=== PATIENT | male | born 1980 | race Caucasian/White ===

== ENCOUNTER 2018-04-12 17:24 | Inpatient (IN) | payer OTHER ==
[2018-04-12] MEDS ORDERED: SODIUM CHLORIDE 0.9% 1,000 ML IV ONE (17:39)
[2018-04-12] MEDS ORDERED: KETOROLAC 30 MG/ML 1 ML VIAL IVP STA (17:39)
[2018-04-12] MEDS ORDERED: ONDANSETRON 4 MG/2 ML VIAL IVP STA (17:40)
--- NOTE | 2018-04-12 17:44 | ED ---
Abdominal Pain HPI - General Chief Complaint: Abdominal Pain Stated Complaint: abdominal pain Time Seen by Provider: 04/12/18 17:31 Source: patient Mode of arrival: ambulatory Limitations: no limitations - History of Present Illness Initial Comments: Patient is a 37-year-old male presents with chief complaint of right lower quadrant abdominal pain. This is been gradually worsening for the last 3 days. The patient states that today he had some diarrhea, and a decreased appetite. He admits to subjective fever. Cannot identify an inciting incident. No aggravating or alleviating factors. Timing is constant. - Related Data Home Medications Medication Instructions Recorded Confirmed Ibuprofen [Advil] 400 mg PO Q8HR 04/12/18 04/12/18 Allergies Allergy/AdvReac Type Severity Reaction Status Date / Time acetaminophen [From Vicodin] Allergy Unknown Verified 04/12/18 17:42 hydrocodone [From Vicodin] Allergy Unknown Verified 04/12/18 17:42 propoxyphene Allergy Unknown Verified 04/12/18 17:42 [From Darvocet-N] Review of Systems ROS Statement: Those systems with pertinent positive or pertinent negative responses have been documented in the HPI. ROS Other: All systems not noted in ROS Statement are negative. Constitutional: Reports: chills Gastrointestinal: Reports: abdominal pain, diarrhea Past Medical History Past Medical History: No Reported History History of Any Multi-Drug Resistant Organisms: None Reported Past Surgical History: No Surgical Hx Reported Past Psychological History: No Psychological Hx Reported Smoking Status: Current every day smoker Past Alcohol Use History: Occasional Past Drug Use History: None Reported General Exam Limitations: no limitations General appearance: alert, in no apparent distress Head exam: Present: atraumatic, normocephalic Eye exam: Present: normal appearance ENT exam: Present: normal exam Neck exam: Present: normal inspection Respiratory exam: Present: normal lung sounds bilaterally. Absent: respiratory distress, wheezes Cardiovascular Exam: Present: regular rate, normal rhythm GI/Abdominal exam: Present: soft, tenderness (RLQ tenderness at mcburneys point ). Absent: distended Rectal exam: Present: deferred Extremities exam: Present: normal inspection Back exam: Present: normal inspection. Absent: CVA tenderness (R), CVA tenderness (L) Neurological exam: Present: alert, oriented X3 Psychiatric exam: Present: normal affect, normal mood Skin exam: Present: warm, dry, intact Course Vital Signs 04/12/18 04/12/18 04/12/18 17:27 18:58 19:12 Temperature 98.0 F 98.6 F Pulse Rate 108 H 79 76 Respiratory 18 18 18 Rate Blood Pressure 119/79 114/71 118/70 O2 Sat by Pulse 97 97 97 Oximetry Medical Decision Making - Medical Decision Making Patient presents with a chief complaint of right lower quadrant abdominal pain. On initial evaluation, vital signs show mild tachycardia but are otherwise stable. Patient be evaluated with basic labs including liver profile and lipase. Patient with a computed tomography scan of the abdomen and pelvis with contrast to rule out appendicitis. He was given Toradol and Zofran. 8:11 PM lab evaluation of this patient shows white blood cells of 17.5, but otherwise unremarkable. Computed tomography scan of the abdomen and pelvis shows evidence of appendicitis with inflammatory changes around the cecum. This case was discussed with Dr. Pollard from radiology. no free air identified. Case discussed with Dr. Jenkins who recommends antibiotics and will take this patient to the OR tonight or tomorrow. Results and I discussed with the patient and his . They're agreeable. Patient started on Rocephin and Flagyl. - Lab Data Result diagrams: 04/12/18 17:50 04/12/18 17:50 Lab Results 04/12/18 04/12/18 Range/Units 17:50 17:50 WBC 17.5 H (3.8-10.6) k/uL RBC 4.86 (4.30-5.90) m/uL Hgb 14.7 (13.0-17.5) gm/dL Hct 43.5 (39.0-53.0) % MCV 89.3 (80.0-100.0) fL MCH 30.1 (25.0-35.0) pg MCHC 33.7 (31.0-37.0) g/dL RDW 12.8 (11.5-15.5) % Plt Count 177 (150-450) k/uL Neutrophils % 84 % Lymphocytes % 7 % Monocytes % 7 % Eosinophils % 1 % Basophils % 0 % Neutrophils # 14.6 H (1.3-7.7) k/uL Lymphocytes # 1.3 (1.0-4.8) k/uL Monocytes # 1.2 H (0-1.0) k/uL Eosinophils # 0.2 (0-0.7) k/uL Basophils # 0.0 (0-0.2) k/uL Sodium 134 L (137-145) mmol/L Potassium (3.5-5.1) mmol/L Chloride 98 (98-107) mmol/L Carbon Dioxide 25 (22-30) mmol/L Anion Gap 11 mmol/L BUN 10 (9-20) mg/dL Creatinine 0.96 (0.66-1.25) mg/dL Est GFR (CKD-EPI)AfAm >90 (>60 ml/min/1.73 sqM) Est GFR (CKD-EPI)NonAf >90 (>60 ml/min/1.73 sqM) Glucose 116 H (74-99) mg/dL Calcium 8.9 (8.4-10.2) mg/dL Total Bilirubin 1.3 (0.2-1.3) mg/dL AST 27 (17-59) U/L ALT 47 (21-72) U/L Alkaline Phosphatase 108 (38-126) U/L Total Protein 7.8 (6.3-8.2) g/dL Albumin 4.2 (3.5-5.0) g/dL Lipase 13 L (23-300) U/L Disposition Clinical Impression: Acute appendicitis, Leukocytosis Disposition: ADMITTED IP TO THIS HOSP Condition: Fair Is patient prescribed a controlled substance at d/c from ED?: No Referrals: None,Stated [Primary Care Provider] - 1-2 days Decision to Admit Reason: Admit from EC - Out of Hospital Transfer - Req. Specs Out of Hospital Transfer - Requested Specifics: Other Non-Acute
[2018-04-12 17:59] LABS: Basophils % (A) 0 %; Eosinophils # (A) 0.2 k/uL (0-0.7); Eosinophils % (A) 1 %; HCT 43.5 % (39.0-53.0); HGB 14.7 gm/dL (13.0-17.5); Lymphocytes # (A) 1.3 k/uL (1.0-4.8); Lymphocytes % (A) 7 %; MCH 30.1 pg (25.0-35.0); MCHC 33.7 g/dL (31.0-37.0); MCV 89.3 fL (80.0-100.0); Mean Platelet Volume 9.8; Monocytes # (A) 1.2 k/uL (0-1.0); Monocytes % (A) 7 %; Neutrophils # (A) 14.6 k/uL (1.3-7.7); Neutrophils % (A) 84 %; Platelet Count 177 k/uL (150-450); RBC 4.86 m/uL (4.30-5.90); RDW 12.8 % (11.5-15.5); WBC 17.5 k/uL (3.8-10.6)
[2018-04-12 18:13] LABS: ALT 47 U/L (21-72); AST 27 U/L (17-59); Albumin 4.2 g/dL (3.5-5.0); Alkaline Phosphatase 108 U/L (38-126); Anion Gap 11 mmol/L; Blood Urea Nitrogen 10 mg/dL (9-20); Calcium 8.9 mg/dL (8.4-10.2); Carbon Dioxide 25 mmol/L (22-30); Chloride 98 mmol/L (98-107); Glucose 116 mg/dL (74-99); Lipase 13 U/L (23-300); Sodium 134 mmol/L (137-145); Total Bilirubin 1.3 mg/dL (0.2-1.3); Total Protein 7.8 g/dL (6.3-8.2)
--- NOTE | 2018-04-12 19:43 | CT ---
EXAMINATION TYPE: CT abdomen pelvis w con DATE OF EXAM: 04/12/2018 COMPARISON: None HISTORY: abdomen pain x several days CT DLP: 1260.8 mGycm, Automated Exposure Control for Dose Reduction was Utilized. CONTRAST: CT scan of the abdomen and pelvis is performed without oral but with IV Contrast, patient injected wi th 100 mL of Isovue 300. FINDINGS: LUNG BASES: Bibasilar linear scarring and/or atelectasis is seen dependently. LIVER/GB: Gallbladder is contracted. PANCREAS: No significant abnormality is seen. SPLEEN: No significant abnormality is seen. ADRENALS: No significant abnormality is seen. KIDNEYS: No significant abnormality is seen. BOWEL: Evaluation of bowel is suboptimal secondary to lack of enteric contrast. Stomach is poorly dis tended and thus suboptimally evaluated. Duodenal sweep is felt within normal limits. There is no susp icious proximal small bowel dilatation. There is mild to moderate wall thickening are present in the distal ileum including terminal ileum with mild/moderate ill-defined fluid and fat stranding. There a re some fluid-filled prominence of ileal loops in the right lower quadrant. Several air-fluid levels are seen. Small bowel loops are dilated to 3.4 cm. There appears to be appendicolith at base of appen yumiko seen best coronal image 47. Remainder of appendix is not well-visualized but there is poor defini tion with ill-defined fat stranding at this level. No pneumoperitoneum is noted. No well-formed fluid collection or abscess is seen. PROSTATE/SEMINAL VESICLES: No gross abnormality seen. LYMPH NODES: No greater than 1cm abdominal or pelvic lymph nodes are appreciated. OSSEOUS STRUCTURES: Subcentimeter sclerotic foci right sacrum coronal image 78 and right proximal fem ur coronal image 61 are nonspecific favor benign bone islands. OTHER: There is moderate amount of free fluid in the pelvis axial image 76. IMPRESSION: CT findings are suggestive of a fairly moderate to severe acute appendicitis as there is obstructing appendicolith present. There is poor visualization of the appendix pass base. There is f elt to be reactive inflammatory change to adjacent small bowel loops in the right lower quadrant. No pneumoperitoneum clearly seen. No well-formed fluid collection or abscess clearly identified. Critical results communicated to ordering ER physician via telephone at time of dictation.
[2018-04-12] MEDS ORDERED: metroNIDAZOLE-NS PMX 500 MG in SALINE 1 100ML.BAG IVPB STA (19:53)
[2018-04-12] MEDS ORDERED: ONDANSETRON 4 MG/2 ML VIAL IVP PRN (20:03)
[2018-04-12] MEDS ORDERED: NALOXONE 0.4 MG/ML 1 ML VIAL IV PRN (20:03)
[2018-04-13] MEDS: MORPHINE SULFATE 4 MG/ML SYRINGE IV PRN ×4 (02:24→14:56)
[2018-04-13 09:23] LABS: Basophils % (A) 0 %; Eosinophils # (A) 0.1 k/uL (0-0.7); Eosinophils % (A) 1 %; HCT 39.3 % (39.0-53.0); HGB 12.9 gm/dL (13.0-17.5); Lymphocytes # (A) 1.2 k/uL (1.0-4.8); Lymphocytes % (A) 9 %; MCH 29.8 pg (25.0-35.0); MCHC 32.8 g/dL (31.0-37.0); MCV 90.7 fL (80.0-100.0); Mean Platelet Volume 9.2; Monocytes # (A) 0.7 k/uL (0-1.0); Monocytes % (A) 6 %; Neutrophils # (A) 10.7 k/uL (1.3-7.7); Neutrophils % (A) 83 %; Platelet Count 175 k/uL (150-450); RBC 4.33 m/uL (4.30-5.90); WBC 12.9 k/uL (3.8-10.6)
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
[2018-04-13] MEDS ORDERED: ceFAZolin IN SWFI 2 GM/20 ML SYRINGE IVP ONE (14:00)
[2018-04-13] MEDS ORDERED: ONDANSETRON 4 MG/2 ML VIAL IVP ONE (16:13)
[2018-04-13] MEDS ORDERED: DEXAMETHASONE SOD PHOS (MDV) 100 MG/10 ML VIAL IVP ONE (16:14)
[2018-04-13] MEDS ORDERED: LACTATED RINGERS 1,000 ML IV ONE ×2 (16:15→18:46)
[2018-04-13] MEDS ORDERED: ROCURONIUM BROMIDE 10 MG/ML 10 ML VIAL IV ONE (17:24)
[2018-04-13] MEDS ORDERED: SUCCINYLCHOLINE CHLORIDE 100 MG/5 ML SYR IV ONE (17:24)
[2018-04-13] MEDS ORDERED: NEOSTIGMINE 1 MG/ML 10 ML VIAL ONE (17:24)
[2018-04-13] MEDS ORDERED: MIDAZOLAM 2 MG/2 ML VIAL ONE (17:24)
[2018-04-13] MEDS ORDERED: fentaNYL (PF) 50 MCG/ML 2 ML AMP ONE (17:24)
[2018-04-13] MEDS ORDERED: GLYCOPYRROLATE 0.2 MG/ML 2 ML VIAL ONE (17:24)
[2018-04-13] MEDS ORDERED: PROPOFOL 10 MG/ML 20 ML VIAL IV ONE (17:24)
[2018-04-13] MEDS ORDERED: LIDOCAINE 1% INJ 10MG/ML (20 ML MDV) ONE (17:24)
[2018-04-13] MEDS ORDERED: HYDROmorphone (PF) 1 MG/ML ONE (17:24)
[2018-04-13] MEDS ORDERED: KETOROLAC 30 MG/ML 1 ML VIAL ONE (17:24)
[2018-04-13] MEDS ORDERED: BUPIVACAIN-EPI 0.25%-1:200,000 30 ML VIAL SQ ONE (17:49)
[2018-04-13] MEDS ORDERED: METOCLOPRAMIDE 5 MG/ML 2 ML VIAL IVP PRN (19:24)
--- NOTE | 2018-04-13 19:24 | P.OP ---
Date of Procedure: 04/13/18 Description of Procedure: SURGEON: MONSE JENKINS MD Preoperative Diagnosis: 1. Right lower quadrant abdominal pain 2. Acute appendicitis. 3. Abnormal computed tomography scan for appendicitis 4. History of tobacco abuse Postoperative Diagnosis: 1. Right lower quadrant abdominal pain 2. Retrocecal acute appendicitis with rupture 3. Abnormal computed tomography scan for appendicitis 4. History of tobacco abuse 5. Right lower quadrant appendiceal abscess, 50 mL 6. Small bowel obstruction Procedure(s) Performed: Robotic-assisted daVinci Xi laparoscopic lysis of adhesions over 30 minutes Robotic-assisted daVinci Xi laparoscopic appendectomy Robotic-assisted daVinci Xi laparoscopic drainage of appendiceal abscess 50 mL Placement of KIMBERLY drain #19 right lower quadrant Anesthesia: GETA, local Surgeon: Monse Jenkins Estimated Blood Loss (ml): 50 Pathology: other (appendiceal abscess culture, appendix) Condition: stable Disposition: floor Operative Findings: 1. Impending small bowel obstruction from right lower quadrant localized peritoneal abscess 2. Extensive lysis of adhesions for drainage of right lower quadrant appendiceal abscess, 50 mL 3. Perforation along proximal body of appendix 4. No inguinal hernias identified 5. KIMBERLY drain along right lower quadrant via left lower quadrant port site 6. Two staple loads blue, 45 mm, fired via right upper quadrant port 7. Console time 52 minutes INDICATIONS: The patient is a 37-year-old male who presents with acute appendicitis. Surgical intervention was described in detail. Benefits and risks, including infection, open surgery, and possibility for additional surgery was discussed at length. Informed consent was obtained. All questions of the patient and family were answered. DESCRIPTION: The patient was transferred to the operating room and placed in supine position. He had previously voided. The abdomen was then prepped and draped in standard sterile fashion as Ioban was placed along the abdomen to minimize any contamination of skin floor. After a timeout protocol was performed, attention was then brought to the left upper quadrant whereby a 0 degree 5 mm laparoscopic trocar entry was performed. The abdominal cavity was entered and insufflated to 15 mmHg pressure, which he tolerated well. Diagnostic laparoscopy demonstrated no injury to bowel, viscera or mesentery. The small bowel was dilated with localized inflammation of the right lower quadrant. Next a robotic 12-mm trocar was placed along the right upper quadrant, 15-cm superior from the pelvis. A 8 mm port was placed along the left lower quadrant and another 8-mm port along the epigastrium. Ports were placed 10 cm apart from each other including 15-20 cm away from the target anatomy of the right pelvis. The patient was then placed in Trendelenburg position, at least 14 and right side up at least 6. The robotic da Radu XI system was primed and docked from the left side of the patient. Using atraumatic graspers and vessel sealer, the robotic system was docked and primed as described. Instruments were interchanged by the bus assistant including graspers, robotic stapler and vessel sealer. Next, attention was brought to identify the cecum. A systematic view within the abdominal cavity was started with the small bowel which was remarkable for dilation and inflammation involving the distal terminal ileum. The base of the cecum had inflammation. The appendix was found retrocecally with moderate dissection performed to identify the base of the appendix. A large periappendiceal right lower quadrant peritoneal abscess over 50 mL was drained. The entire appendix was necrotic with perforation along the midbody. A 45 mm blue robotic staple loads were fired along the base of the appendix. Bleeding along the staple line was controlled with pressure using 4 x 4 gauze. Hemostasis was checked prior to undocking the robot. The robot was undocked. I re-scrubbed into the case. A round #19 drain was placed via the left lower quadrant port and positioned at the abscess pocket after irrigating the abdomen with 1 L of normal saline until the aspirant was clear. A drain stitch 2-0 nylon was placed with the bulb attached separately. The specimen was removed from the abdominal cavity with an Endo Catch bag through the 12 mm trocar at the right upper quadrant. All instruments and pneumoperitoneum were evacuated from the abdominal cavity. Local anesthetic was infiltrated to all wounds for postop analgesia. All incisions were also cleansed with diluted hydrogen peroxide. An Optifoam surgical dressing was placed over the right upper quadrant incision. Exofin glue was applied to the rest of the skin incisions. The patient had tolerated the procedure well. The patient was extubated successfully. Intraoperative photos were reviewed with the patient's family who were overall pleased with the level of care. The patient was transferred to the postanesthesia care unit in stable condition.
[2018-04-13] MEDS: metroNIDAZOLE-NS PMX 500 MG in SALINE 1 100ML.BAG IVPB SCH (22:56)
[2018-04-14] MEDS: AMPICILLIN-SULBACTAM 3 GM in SODIUM CHLORIDE 0.9% 100 ML IVPB SCH ×4 (00:04→19:31)
[2018-04-14] MEDS: MORPHINE SULFATE 4 MG/ML SYRINGE IV PRN ×3 (01:34→11:39)
[2018-04-14] MEDS: metroNIDAZOLE-NS PMX 500 MG in SALINE 1 100ML.BAG IVPB SCH ×4 (04:56→22:23)
[2018-04-14] MEDS: ENOXAPARIN 30 MG/0.3 ML SYRINGE SQ SCH (09:41)
[2018-04-14 11:45] LABS: Basophils % (A) 0 %; Eosinophils % (A) 0 %; HCT 35.6 % (39.0-53.0); HGB 11.3 gm/dL (13.0-17.5); Lymphocytes % (A) 9 %; MCHC 31.8 g/dL (31.0-37.0); MCV 91.1 fL (80.0-100.0); Mean Platelet Volume 8.7; Monocytes # (A) 0.8 k/uL (0-1.0); Monocytes % (A) 7 %; Neutrophils % (A) 81 %; Platelet Count 197 k/uL (150-450); RDW 12.7 % (11.5-15.5); WBC 11.1 k/uL (3.8-10.6)
[2018-04-14] MEDS: KETOROLAC 30 MG/ML 1 ML VIAL IVP SCH ×2 (13:22→19:30)
[2018-04-14] MEDS: SODIUM CHLORIDE 0.9% 2,000 ML IV ONE ×2 (16:27→17:20)
--- NOTE | 2018-04-14 18:20 | P.PN ---
Subjective Progress Note Date: 04/14/18 CHIEF COMPLAINT: Perforated appendicitis with large appendiceal abscess HISTORY OF PRESENT ILLNESS: The patient is a 37-year-old gentleman status post robotic-assisted appendectomy for perforated appendicitis and drainage of large appendiceal abscess right lower quadrant. He is tolerating diet. He reports minimal flatus. Pain is now controlled with IV Toradol and Tylenol No. 3. Cultures are pending. PHYSICAL EXAM: VITAL SIGNS: Reviewed. GENERAL: Well-developed in no acute distress. HEENT: No sclera icterus. Extraocular movements grossly intact. Moist buccal mucosa. Head is atraumatic, normocephalic. Hears conversational speech. No nasal drainage. NECK: Supple without lymphadenopathy. CHEST: Non-labored respirations and equal bilateral excursions. CARDIOVASCULAR: Palpable 2+ radial pulses. ABDOMEN: Soft. Incisions clean dry and intact. KIMBERLY serosanguineous. Minimal tenderness right lower quadrant. No cell or some infection. MUSCULOSKELETAL: No clubbing, cyanosis or edema. NEUROLOGIC: No focal or lateralizing signs. Cranial nerves II through XII grossly intact. PSYCH: Appropriate affect. Alert and oriented to person, place and time. SKIN: Well perfused. Good skin turgor. ASSESSMENT: 1. Acute perforated appendicitis with large appendiceal abscess PLAN: 1. Continue IV antibiotics for large appendiceal abscess 2. Infectious disease consultation for complicated perforated appendicitis Objective - Vital Signs Vital signs: Vital Signs Temp 97.6 F 04/14/18 15:00 Pulse 78 04/14/18 15:00 Resp 17 04/14/18 15:00 BP 116/70 04/14/18 15:00 Pulse Ox 94 L 04/14/18 15:00 Intake & Output 04/13/18 04/14/18 04/14/18 18:59 06:59 18:59 Intake Total 1200 1000 Output Total 50 930 230 Balance 1150 70 -230 Intake: IV 1200 0 Intake, IV Titration 650 Amount Ampicillin-Sulbactam 3 gm 200 In Sodium Chloride 0.9% 100 ml @ 200 mls/hr IVPB Q6HR [facility] Rx#:[id number] Lactated Ringers 1,000 ml 250 @ 0 mls/hr IV .[facility] Rx#:[id number] metroNIDAZOLE-NS PMX 500 200 mg In Saline 1 100ml.bag @ 100 mls/hr IVPB Q6H [facility] Rx#:[id number] Oral 350 Output: Drainage 110 230 Anterior Abdomen 110 230 Urine 820 Estimated Blood Loss 50 Other: Voiding Method Toilet Toilet Toilet Urinal Urinal # Voids 2 2 2 - Labs CBC & Chem 7: 04/14/18 11:24 04/12/18 17:50 Labs: Abnormal Lab Results - Last 24 Hours (Table) 04/14/18 Range/Units 11:24 WBC 11.1 H (3.8-10.6) k/uL RBC 3.90 L (4.30-5.90) m/uL Hgb 11.3 L (13.0-17.5) gm/dL Hct 35.6 L (39.0-53.0) % Neutrophils # 9.0 H (1.3-7.7) k/uL Microbiology - Last 24 Hours (Table) 04/13/18 18:59 Gram Stain - Preliminary Peritoneal Fluid Body Fluid Culture - Preliminary 04/13/18 18:59 Anaerobic Culture - Preliminary Peritoneal Fluid 04/12/18 20:25 Blood Culture - Preliminary Blood No Growth after 24 hours Assessment and Plan (1) Acute appendicitis Current Visit: Yes Status: Acute Code(s): K35.80 - UNSPECIFIED ACUTE APPENDICITIS SNOMED Code(s): 61202766 (2) Leukocytosis Current Visit: Yes Status: Acute Code(s): D72.829 - ELEVATED WHITE BLOOD CELL COUNT, UNSPECIFIED SNOMED Code(s): 750000590 (3) Peritonitis with abscess of intestine Current Visit: Yes Status: Acute Code(s): K65.1 - PERITONEAL ABSCESS SNOMED Code(s): 24809859 (4) Ruptured suppurative appendicitis Current Visit: Yes Status: Acute Code(s): K35.32 - ACUTE APPENDICITIS WITH PERF AND LOC PERITONITIS, W/O ABSCS SNOMED Code(s): 42982554
[2018-04-14] MEDS: SODIUM CHLORIDE 0.9% 1,000 ML IV SCH (18:21)
[2018-04-14] MEDS: Acetaminophen-Codeine 300-30mg TAB PO PRN (18:25)
[2018-04-15] MEDS: KETOROLAC 30 MG/ML 1 ML VIAL IVP SCH ×5 (00:28→22:57)
[2018-04-15] MEDS: AMPICILLIN-SULBACTAM 3 GM in SODIUM CHLORIDE 0.9% 100 ML IVPB SCH ×4 (00:28→17:52)
[2018-04-15] MEDS: metroNIDAZOLE-NS PMX 500 MG in SALINE 1 100ML.BAG IVPB SCH ×4 (04:13→22:58)
[2018-04-15] MEDS: MORPHINE SULFATE 4 MG/ML SYRINGE IV PRN ×3 (04:59→14:14)
[2018-04-15] MEDS: SODIUM CHLORIDE 0.9% 1,000 ML IV SCH ×2 (05:49→12:44)
[2018-04-15] MEDS: Acetaminophen-Codeine 300-30mg TAB PO PRN ×3 (07:53→16:47)
[2018-04-15] MEDS: ENOXAPARIN 30 MG/0.3 ML SYRINGE SQ SCH (07:53)
[2018-04-15 09:38] LABS: Basophils # (A) 0.1 k/uL (0-0.2); Basophils % (A) 1 %; Eosinophils # (A) 0.2 k/uL (0-0.7); Eosinophils % (A) 2 %; HCT 38.5 % (39.0-53.0); HGB 12.1 gm/dL (13.0-17.5); Lymphocytes # (A) 1.5 k/uL (1.0-4.8); Lymphocytes % (A) 15 %; MCH 28.9 pg (25.0-35.0); MCHC 31.5 g/dL (31.0-37.0); MCV 91.7 fL (80.0-100.0); Mean Platelet Volume 8.2; Monocytes # (A) 0.5 k/uL (0-1.0); Monocytes % (A) 5 %; Neutrophils # (A) 7.9 k/uL (1.3-7.7); Neutrophils % (A) 77 %; Platelet Count 228 k/uL (150-450); RDW 12.8 % (11.5-15.5); WBC 10.3 k/uL (3.8-10.6)
[2018-04-15 17:32] VITALS: RESP 16
--- NOTE | 2018-04-15 21:24 | P.PN ---
Subjective Progress Note Date: 04/15/18 CHIEF COMPLAINT: Perforated appendicitis with large appendiceal abscess HISTORY OF PRESENT ILLNESS: The patient is a 37-year-old gentleman status post robotic-assisted appendectomy for perforated appendicitis and drainage of large appendiceal abscess right lower quadrant. He is tolerating diet. He is now passing moderate flatus and has appetite. PHYSICAL EXAM: VITAL SIGNS: Reviewed. GENERAL: Well-developed in no acute distress. HEENT: No sclera icterus. Extraocular movements grossly intact. Moist buccal mucosa. Head is atraumatic, normocephalic. Hears conversational speech. No nasal drainage. NECK: Supple without lymphadenopathy. CHEST: Non-labored respirations and equal bilateral excursions. CARDIOVASCULAR: Palpable 2+ radial pulses. ABDOMEN: Soft. Incisions clean dry and intact. KIMBERLY serosanguineous. No peritonitis. MUSCULOSKELETAL: No clubbing, cyanosis or edema. NEUROLOGIC: No focal or lateralizing signs. Cranial nerves II through XII grossly intact. PSYCH: Appropriate affect. Alert and oriented to person, place and time. SKIN: Well perfused. Good skin turgor. ASSESSMENT: 1. Acute perforated appendicitis with large appendiceal abscess PLAN: 1. Still awaiting final cultures 2. Advance diet to soft 3. For localized abscess with peritonitis, pending infectious disease recommendations. 4. Disposition in 24 hrs pending continued clinical improvement Objective - Vital Signs Vital signs: Vital Signs Temp 98.3 F 04/15/18 19:10 Pulse 89 04/15/18 19:10 Resp 16 04/15/18 20:03 BP 116/70 04/15/18 19:10 Pulse Ox 94 L 04/15/18 19:10 Intake & Output 04/15/18 04/15/18 04/16/18 06:59 18:59 06:59 Intake Total 7622 017 3305 Output Total 100 430 Balance 0576 320 2329 Intake: IV 400 Ampicillin-Sulbactam 3 gm 200 In Sodium Chloride 0.9% 100 ml @ 200 mls/hr IVPB Q6HR [facility] Rx#:[id number] metroNIDAZOLE-NS PMX 500 200 mg In Saline 1 100ml.bag @ 100 mls/hr IVPB Q6H [facility] Rx#:[id number] Intake, IV Titration 1045 150 Amount Ampicillin-Sulbactam 3 gm 200 In Sodium Chloride 0.9% 100 ml @ 200 mls/hr IVPB Q6HR [facility] Rx#:[id number] Sodium Chloride 0.9% 1, 645 150 000 ml @ 75 mls/hr IV . [id number] [facility] Rx#:[id number] metroNIDAZOLE-NS PMX 500 200 mg In Saline 1 100ml.bag @ 100 mls/hr IVPB Q6H [facility] Rx#:[id number] Oral [phone] Output: Drainage 100 430 Anterior Abdomen 100 430 Other: Voiding Method Toilet Toilet Toilet Urinal Urinal Urinal # Voids 2 1 - Labs CBC & Chem 7: 04/15/18 08:29 04/12/18 17:50 Labs: Abnormal Lab Results - Last 24 Hours (Table) 04/15/18 Range/Units 08:29 RBC 4.20 L (4.30-5.90) m/uL Hgb 12.1 L (13.0-17.5) gm/dL Hct 38.5 L (39.0-53.0) % Neutrophils # 7.9 H (1.3-7.7) k/uL Microbiology - Last 24 Hours (Table) 04/13/18 18:59 Gram Stain - Preliminary Peritoneal Fluid Body Fluid Culture - Preliminary Escherichia coli Alpha Hemolytic Streptococcus 04/12/18 20:25 Blood Culture - Preliminary Blood No Growth after 48 hours Assessment and Plan (1) Acute appendicitis Current Visit: Yes Status: Acute Code(s): K35.80 - UNSPECIFIED ACUTE APPENDICITIS SNOMED Code(s): 27293705 (2) Leukocytosis Current Visit: Yes Status: Acute Code(s): D72.829 - ELEVATED WHITE BLOOD CELL COUNT, UNSPECIFIED SNOMED Code(s): 262798154 (3) Peritonitis with abscess of intestine Current Visit: Yes Status: Acute Code(s): K65.1 - PERITONEAL ABSCESS SNOMED Code(s): 85076251 (4) Ruptured suppurative appendicitis Current Visit: Yes Status: Acute Code(s): K35.32 - ACUTE APPENDICITIS WITH PERF AND LOC PERITONITIS, W/O ABSCS SNOMED Code(s): 69219382
[2018-04-15] MEDS: PIPERACILLIN-TAZOBACTAM 3.375 GM in SODIUM CHLORIDE 0.9% 100 ML IVPB SCH (22:58)
[2018-04-16] MEDS: metroNIDAZOLE-NS PMX 500 MG in SALINE 1 100ML.BAG IVPB SCH ×3 (05:07→17:32)
[2018-04-16] MEDS: KETOROLAC 30 MG/ML 1 ML VIAL IVP SCH ×3 (05:19→17:32)
[2018-04-16] MEDS: PIPERACILLIN-TAZOBACTAM 3.375 GM in SODIUM CHLORIDE 0.9% 100 ML IVPB SCH ×2 (05:23→12:09)
[2018-04-16 08:36] LABS: Basophils % (A) 0 %; Eosinophils # (A) 0.4 k/uL (0-0.7); Eosinophils % (A) 5 %; HCT 36.1 % (39.0-53.0); HGB 11.9 gm/dL (13.0-17.5); Lymphocytes # (A) 1.2 k/uL (1.0-4.8); Lymphocytes % (A) 14 %; MCH 30.2 pg (25.0-35.0); MCHC 32.9 g/dL (31.0-37.0); MCV 91.6 fL (80.0-100.0); Mean Platelet Volume 8.6; Monocytes # (A) 0.5 k/uL (0-1.0); Monocytes % (A) 6 %; Neutrophils # (A) 5.8 k/uL (1.3-7.7); Neutrophils % (A) 72 %; Platelet Count 221 k/uL (150-450); RBC 3.94 m/uL (4.30-5.90)
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
[2018-04-16] MEDS: ENOXAPARIN 30 MG/0.3 ML SYRINGE SQ SCH (09:37)
[2018-04-16] MEDS: SODIUM CHLORIDE 0.9% 1,000 ML IV SCH (09:37)
[2018-04-16 15:46] VITALS: BP 107/69; PULSE 74; TEMP 98
[2018-04-16] MEDS: Acetaminophen-Codeine 300-30mg TAB PO PRN (16:19)
--- NOTE | 2018-04-16 16:52 | P.DS ---
Providers Date of admission: 04/13/18 19:26 Expected date of discharge: 04/16/18 Attending physician: Monse Jenkins Consults: 04/12/18 20:14 Consult Physician Routine Consulting Provider: [facility] Consult Reason/Comments: Anesthesia Care Do you want consulting provider notified?: Yes 04/15/18 05:51 Consult Physician Routine Consulting Provider: Vignesh Lopez Consult Reason/Comments: fecal peritonitis ruptured appendicitis antibiotic management Do you want consulting provider notified?: Yes, Notify in am Primary care physician: Stated None - Discharge Diagnosis(es) (1) Acute appendicitis Current Visit: Yes Status: Acute (2) Leukocytosis Current Visit: Yes Status: Acute (3) Peritonitis with abscess of intestine Current Visit: Yes Status: Acute (4) Ruptured suppurative appendicitis Current Visit: Yes Status: Acute Hospital Course: Vital Signs Temp 98 F 04/16/18 15:35 Pulse 74 04/16/18 15:35 Resp 16 04/16/18 15:35 BP 107/69 04/16/18 15:35 Pulse Ox 95 04/16/18 15:35 Intake & Output 04/15/18 04/16/18 04/16/18 18:59 06:59 18:59 Intake Total 880 1230 440 Output Total 430 Balance 450 1230 440 Intake: IV 400 Ampicillin-Sulbactam 3 gm 200 In Sodium Chloride 0.9% 100 ml @ 200 mls/hr IVPB Q6HR [facility] Rx#:[id number] metroNIDAZOLE-NS PMX 500 200 mg In Saline 1 100ml.bag @ 100 mls/hr IVPB Q6H [facility] Rx#:[id number] Intake, IV Titration 150 Amount Sodium Chloride 0.9% 1, 150 000 ml @ 75 mls/hr IV . [id number] [facility] Rx#:[id number] Oral 480 1080 440 Output: Drainage 430 Anterior Abdomen 430 Other: Voiding Method Toilet Toilet Urinal Urinal # Voids 1 1 Laboratory Results - last 24 hr 04/16/18 06:54 WBC 8.0 RBC 3.94 L Hgb 11.9 L Hct 36.1 L MCV 91.6 MCH 30.2 MCHC 32.9 RDW 13.0 Plt Count 221 Neutrophils % 72 Lymphocytes % 14 Monocytes % 6 Eosinophils % 5 Basophils % 0 Neutrophils # 5.8 Lymphocytes # 1.2 Monocytes # 0.5 Eosinophils # 0.4 Basophils # 0.0 Patient clinically did well after ruptured appendicitis. KIMBERLY drain care described. Follow-up in the office for discontinue drain. Antibiotic management confirmed by infectious disease provider Patient Condition at Discharge: Fair Plan - Discharge Summary Discharge Rx Participant: Yes New Discharge Prescriptions: New Ciprofloxacin HCl [Cipro] 500 mg PO Q12HR #20 tablet metroNIDAZOLE [Flagyl] 500 mg PO TID #30 tab Ibuprofen [Motrin] 600 mg PO Q8HR PRN #30 tab PRN Reason: Pain Acetaminophen-Codeine 300-30mg [Tylenol w/codeine #3] 1 each PO Q4HR PRN #18 tab PRN Reason: Pain Discontinued Ibuprofen [Advil] 400 mg PO Q8HR Discharge Medication List Acetaminophen-Codeine 300-30mg [Tylenol w/codeine #3] 1 each PO Q4HR PRN #18 tab 04/16/18 [Rx] Ciprofloxacin HCl [Cipro] 500 mg PO Q12HR #20 tablet 04/16/18 [Rx] Ibuprofen [Motrin] 600 mg PO Q8HR PRN #30 tab 04/16/18 [Rx] metroNIDAZOLE [Flagyl] 500 mg PO TID #30 tab 04/16/18 [Rx] Follow up Appointment(s)/Referral(s): None,Stated [Primary Care Provider] - 1-2 days Monse Jenkins MD [STAFF PHYSICIAN] - 04/29/18 (Call to confirm time of appointment) Patient Instructions/Handouts: [facility]-Tejeda Drain Care (DC), Laparoscopic Appendectomy (DC), Appendicitis (GEN) Activity/Diet/Wound Care/Special Instructions: No bathtub soaks. Do not use alcohol with prescriptions. Please monitor and measure output from KIMBERLY drain. Do not return to work until cleared by surgeon. No lifting over 4 pounds 2 weeks. Discharge Disposition: HOME SELF-CARE
== END 2018-04-16 18:30 | disposition home or self-care (01) | DRG 337 ==
LOC: EC 17:24 → 4SSUR 20:03 → OBSVTOIN 04-13 19:26
PROVIDERS: ADMIT Surgery Plastic and Reconstructive Surgery; ATTEND Surgery Plastic and Reconstructive Surgery
PROC: 0DNW4ZZ Release Peritoneum, Percutaneous Endoscopic Approach (ICD-10-PCS; principal; 2018-04-13 10:45)
PROC: 0D9J4ZZ Drainage of Appendix, Percutaneous Endoscopic Approach (ICD-10-PCS; principal; 2018-04-13 10:45)
PROC: 8E0W3CZ Robotic Assisted Procedure of Trunk Region, Percutaneous Approach (ICD-10-PCS; principal; 2018-04-13 10:45)
PROC: 0DTJ4ZZ Resection of Appendix, Percutaneous Endoscopic Approach (ICD-10-PCS; principal; 2018-04-13 10:45)
DX: K35.33 Acute appendicitis with perforation, localized peritonitis, and gangrene, with abscess (principal); K66.0 Peritoneal adhesions (postprocedural) (postinfection); F17.200 Nicotine dependence, unspecified, uncomplicated; Z82.49 Family history of ischemic heart disease and other diseases of the circulatory system; Z83.3 Family history of diabetes mellitus; Z79.1 Long term (current) use of non-steroidal anti-inflammatories (NSAID); Z88.5 Allergy status to narcotic agent; Z88.8 Allergy status to other drugs, medicaments and biological substances
CPT/HCPCS: 36415; 74177; 80053; 83690; 85025; 87040; 87070; 87075; 87077; 87186; 87205; 88108; 88304; 88305; 96361; 96374; 96375; 99285